=== PATIENT | male | born 1980 | race Caucasian/White ===

== ENCOUNTER 2017-05-15 15:46 | Emergency (ER) | payer OTHER ==
[~2017-05-15] VITALS: Ht 167.6 cm; Wt 58.9 kg
[2017-05-15 15:50] VITALS: TEMP 36.7; Ht 167.6 cm; Wt 58.9 kg
[2017-05-15] MEDS ORDERED: XYLOCAINE 1%/SOD BICARB 20 ML VIAL INFIL ONE (16:15)
--- NOTE | 2017-05-15 16:33 | EMERGENCY ROOM VISIT NOTE ---
ED Visit Note First contact with patient: 15:56 CHIEF COMPLAINT: Right lower leg laceration HISTORY OF PRESENT ILLNESS: This 37-year-old male presents the ER with chief complaint of left lower leg laceration. The patient states that he was in-line skating and hit a bolt on a railing with his right lower leg. Patient's tetanus is up-to-date. The bleeding has stopped. REVIEW OF SYSTEMS: 6 system review was performed and was negative unless stated otherwise in history of present illness. PMH: The patient is healthy; multiple head injuries SOCIAL HISTORY: Patient lives with his family. The patient denies any tobacco or alcohol use. PHYSICAL EXAM: Vital Signs: Were reviewed Reviewed Nurse's notes. GENERAL: 37- year-old white male appears in no acute distress. MENTAL Status: Alert and oriented 3. RIGHT LOWER LEG: There is a 3 cm ragged U-shaped laceration on the upper anterior aspect of the leg. There is no active bleeding. The wound looks clean. No deep structures are visualized. EMERGENCY DEPARTMENT COURSE: The patient was evaluated. Wound Repair: Complexity: Basic. Verbal consent was obtained after the risks and benefits were explained, including but not limited to bleeding, scarring, infection, pain, and bone/joint /nerve damage. The skin was prepped with betadine and a sterile field set. The wound was anesthetized with 4.8 ml of 1% buffered lidocaine. With direct pressure the bleeding subsided. Copious irrigation was performed using sterile saline. The wound was explored for foreign bodies and none found. Debridement was not performed. The wound edges were approximated using 5-0 Ethilon with 6 simple interrupted sutures. Hemostasis and excellent approximation was achieved. Antibacterial ointment and a sterile dressing applied. Detailed wound care instructions and signs and symptoms of infection reviewed with the patient. No complications and the patient tolerated the procedure well. DIAGNOSIS: 3 cm right Leg laceration DISCHARGE INSTRUCTIONS & TREATMENT: Watch the area carefully for signs of infection such as redness, swelling, or tenderness. If any should occur seek medical attention by her family physician for antibiotic treatment. The stitches should be taken out in 10 days. Read the wound care general instructions that you were given also. Current/Historical Medications No Active Prescriptions or Reported Meds Allergies Coded Allergies: No Known Allergies (Unverified , 05/15/17) Vital Signs Date Time Temp Pulse Resp B/P (MAP) Pulse Ox O2 Delivery O2 Flow Rate FiO2 7/7/17 15:50 36.7 70 18 110/63 97 Room Air Medications Administered Medications (Trade) Dose Ordered Sig/Cade Route Start Time Stop Time Status Last Admin Dose Admin Lidocaine HCl (Buffered Lidocaine 1% Inj) 20 ml NOW ONCE INFIL 05/15/17 16:15 05/15/17 16:16 DC 05/15/17 16:13 20 ML Departure Information Prescriptions No Active Prescriptions or Reported Meds Referrals No Doctor, Assigned (PCP) Patient Instructions [facility]
[2017-05-15 16:44] VITALS: BP 117/76; PULSE 57; O2SAT 98
== END 2017-05-15 16:45 | disposition home or self-care (01) ==
LOC: C.EDB 15:47 → C.EDD 16:45
DX: S81.812A Laceration without foreign body, left lower leg, initial encounter (principal); W22.8XXA Striking against or struck by other objects, initial encounter; Y93.51 Activity, roller skating (inline) and skateboarding